=== PATIENT | male | born 1955 | race Hispanic/Latino ===

== ENCOUNTER 2019-04-12 05:49 | Inpatient (IN) | payer BC ==
[2019-04-10 13:24] VITALS: BP 135/63
[2019-04-10 13:33] LABS: APPEARANCE,URINE Clear (CLEAR); BILIRUBIN,URINE Negative (NEGATIVE); COLOR,URINE Yellow (YELLOW); GLUCOSE, URINE (UA) >=1000 mg/dL (NEGATIVE); KETONES,URINE Negative (NEGATIVE); LEUKOCYTE ESTERASE ,URINE Negative (NEGATIVE); NITRATE,URINE Negative (NEGATIVE); OCCULT BLOOD,URINE Negative (NEGATIVE); PH,URINE 5.5 (5.0-8.0); PROTEIN,URINE Negative (NEGATIVE)
[2019-04-10 13:40] LABS: CREATININE 1.4 mg/dL (0.5-1.5); POTASSIUM 4.3 mmol/L (3.5-5.1)
[2019-04-10 13:42] LABS: BASOPHILS % (AUTO) 0.5 % (0.0-5.0); EOSINOPHILS % (AUTO) 3.7 % (0.0-8.0); HEMATOCRIT 40.2 % (42-54); LYMPHOCYTES % (AUTO) 28.1 % (21.0-51.0); MEAN CORPUSCULAR HEMOGLOBIN 33.8 pg (27.0-33.0); MEAN CORPUSCULAR HGB CONC 35.4 g/dL (32.0-36.0); MEAN CORPUSCULAR VOLUME 95.4 fL (79-99); MONOCYTES % (AUTO) 9.1 % (3.0-13.0); NEUTROPHILS % (AUTO) 58.6 % (40.0-77.0); PLATELET COUNT (AUTO) 226 K/uL (130-400); RED BLOOD CELL COUNT(AUTO) 4.21 MIL/uL (4.50-6.20); RED CELL DISTRIBUTION WIDTH 13.1 % (11.0-15.5); WHITE BLOOD COUNT (AUTO) 6.5 K/uL (4.8-10.8)
[2019-04-10 13:51] LABS: BACTERIA,URINE Rare /HPF (None Seen); RBC,URINE 0-1 /HPF (0-1); SQUAMOUS EPITHELIAL CELL,UR Rare /HPF (0-2); WBC,URINE 0-1 /HPF (0-1)
[2019-04-10 14:17] LABS: INR 0.99 (0.85-1.15); PARTIAL THROMBOPLASTIN TIME 25.2 SEC (26.3-35.5); PROTHROMBIN TIME 10.4 SEC (9.6-11.6)
--- NOTE | 2019-04-11 13:24 | NUR ---
labs bun/ crea reported to Loli Briceño NP. (Dr. Collazo). no further orders given. ok to proceed with procedure
[2019-04-12] VITALS (11 sets, daily range): BP systolic 118–148; BP diastolic 51–70
[~2019-04-12] VITALS: Ht 165.1 cm; Wt 77.3 kg
[~2019-04-12 05:49] MED LIST: ASPI-1181 PO; ATOR20TA65 PO; ISOS20TA7 PO; LOSA1TAB37 PO; METF500T20 PO; METO-391 PO; RANO10003 PO; SODIUM CHLORIDE 0.9% 500ML 500 ML IV SCH
[2019-04-12] MEDS ORDERED: SODIUM CHLORIDE 0.9% 1000ML 1,000 ML IV ONE (06:22)
--- NOTE | 2019-04-12 06:25 | NUR ---
PRE-PROCEDURE RECEIVED FROM HOME VIA AMBULATING TO DAY 15 FOR SCHEDULED LHC. AWAKE IN NO ACUTE DISTRESS. DENIES CHEST PAIN AT PRESENT TIME. CONNECTED TO CONTINUOUS CARDIOPULMONARY MONITORING. SIDE RAILS UP X2, BED IN LOWEST POSITION, AND CALL LIGHT W/IN REACH.
[2019-04-12] MEDS ORDERED: HEPARIN SODIUM 1000UNIT/ML 10ML VIAL ONE (07:08)
[2019-04-12] MEDS ORDERED: IOHEXOL 350 MG/ML 100ML INFUS..BTL IV ONE (07:09)
[2019-04-12] MEDS ORDERED: LIDOCAINE HCL 2% 20ML ONE (07:09)
[2019-04-12] MEDS ORDERED: NITROGLYCERIN 5 MG/ML 10 ML VIAL IV ONE (07:09)
[2019-04-12] MEDS ORDERED: IOHEXOL-350 50ML VIAL IV ONE (07:09)
--- NOTE | 2019-04-12 07:15 | NUR ---
PROCEDURE TRANSFERRED TO VICE PRESIDENT RESEARCH VIA BED BY ANA LAURA OSUNA RN FOR SCHEDULED LHC. AWAKE IN NO ACUTE DISTRESS.
[2019-04-12] MEDS ORDERED: NITROGLYCERIN 4.1 GM SPRAY TL ONE (07:49)
[2019-04-12] MEDS ORDERED: METOPROLOL TARTRATE 1 MG/ML 5ML VIAL IV ONE (07:52)
[2019-04-12] MEDS ORDERED: HYDRALAZINE HCL 20 MG/ML VIAL ONE (07:55)
[2019-04-12] MEDS ORDERED: GLUCAGON 1MG KIT 1 MG ML IM PRN ×2 (08:15)
[2019-04-12] MEDS ORDERED: DEXTROSE 50%-WATER 50 ML DISP.SYRIN IV PRN (08:15)
--- NOTE | 2019-04-12 08:25 | NUR ---
POST-PROCEDURE RECEIVED BACK FROM CABIN CREW VIA BED BY ANA LAURA OSUNA RN S/P [facility]. AWAKE IN NO ACUTE DISTRESS. CONNECTED TO CONTINUOUS CARDIOPULMONARY MONITORING. DENIES PAIN. EDUCATED PT TO KEEP HEAD FLAT AND RIGHT LEG STRAIGHT. PT VERBALIZED UNDERSTANDING. SIDE RAILS UP X2, BED IN LOWEST POSITION, AND CALL LIGHT W/IN REACH. PENDING SURGICAL EVALUATION.
[2019-04-12] MEDS ORDERED: INSULIN HUMULIN R 100 UNIT/ML 3ML ONE (09:08)
--- NOTE | 2019-04-12 09:30 | NUR ---
CONSULT DR. MOJICA AND MJ CHAMBERS IN TO SEE PATIENT. PLAN FOR CABG DISCUSSED WITH PT AND . BOTH VERBALIZED UNDERSTANDING.
--- NOTE | 2019-04-12 10:10 | NUR ---
CONSULT NEYDA STEVE NP IN TO SEE PATIENT FOR NEW CONSULT.
[2019-04-12] MEDS ORDERED: CEFAZOLIN SODIUM 1 GM VIAL IVP PRN (10:15)
--- NOTE | 2019-04-12 11:00 | NUR ---
ACTIVITY HOB ELEVATED 25 DEGREES. CATH SITE W/O SIGNS OF BLEEDING ANGIOSEAL DRESSING CLEAN, DRY, AND INTACT;SITE SOFT, NON-TENDER.
--- NOTE | 2019-04-12 11:25 | NUR ---
REPORT REPORT GIVEN TO MJ ROSS USING SBAR. VERBALIZED UNDERSTANDING.
[2019-04-12] MEDS: INSULIN HUMULIN R 100 UNIT/ML 3ML SQ SCH ×3 (11:30→21:00)
--- NOTE | 2019-04-12 11:30 | NUR ---
TRANSFER TRANSFERRED TO ROOM 204 VIA BED. AWAKE IN NO ACUTE DISTRESS. CATH SITE CHECKED AT BEDSIDE NO SIGNS OF BLEEDING; ANGIOSEAL DRESSING CLEAN, DRY, AND INTACT;SITE SOFT, NON-TENDER.
[2019-04-12] MEDS ORDERED: ALBUMIN (HUMAN) 25% 50 ML IV ONE (14:21)
[2019-04-12] MEDS ORDERED: PHENYLEPHRINE HCL 10 MG/ML 1ML VIAL IV ONE (14:21)
[2019-04-12] MEDS ORDERED: HEPARIN SODIUM 1000UNIT/ML 10ML VIAL IV ONE (14:21)
[2019-04-12] MEDS ORDERED: AMINOCAPROIC ACID 250 MG/ML 20 ML VIAL IV ONE (14:21)
[2019-04-12] MEDS ORDERED: CALCIUM CHLORIDE 100 MG/ML 10 ML SYG IVP ONE (14:21)
[2019-04-12] MEDS ORDERED: MAGNESIUM SULFATE 1 GM/2 ML VIAL IM ONE (14:21)
[2019-04-12] MEDS ORDERED: MANNITOL 25% 50ML VIAL IV ONE (14:21)
[2019-04-12 14:44] LABS: HEMATOCRIT 41.5 % (42-54); MEAN CORPUSCULAR HEMOGLOBIN 32.7 pg (27.0-33.0); MEAN CORPUSCULAR HGB CONC 34.7 g/dL (32.0-36.0); MEAN CORPUSCULAR VOLUME 94.1 fL (79-99); PLATELET COUNT (AUTO) 271 K/uL (130-400); RED BLOOD CELL COUNT(AUTO) 4.41 MIL/uL (4.50-6.20); WHITE BLOOD COUNT (AUTO) 7.4 K/uL (4.8-10.8)
[2019-04-12 14:56] LABS: HEMOGLOBIN A1C 8.1 % (4.0-6.0); INR 1.03 (0.85-1.15); PARTIAL THROMBOPLASTIN TIME 24.5 SEC (26.3-35.5); PROTHROMBIN TIME 10.8 SEC (9.6-11.6)
[2019-04-12 14:58] LABS: CREATININE 1.6 mg/dL (0.5-1.5); POTASSIUM 3.7 mmol/L (3.5-5.1)
--- NOTE | 2019-04-12 15:13 | NUR ---
DC PLAN VISITED WITH PATIENT. PATIENT LIVES WITH SPOUSE. INDEPENDENT ABLE TO PERFORM ADL'S. PATIENT HAS NO SERVICES OR DME'S. FEELS SAFE TO RETURN HOME. ABNORMAL [facility] CONSULT FOR CABG. Addendum: 04/12/19 at 1516 by LETTY GILLILAND RN CM Amended: Links added.
[2019-04-12 15:14] LABS: B-TYPE NATRIURETIC PEPTIDE 30 pg/mL (0-100)
--- NOTE | 2019-04-12 18:30 | NUR ---
CONSENT Awake, alert, and oriented x3. Denies any chest pain at this time. Pre-op CABG teaching completed, education packets given. Consent signed at this time, questions answered. Spouse at bedside.
[2019-04-13] VITALS (47 sets, daily range): BP systolic 114–193; BP diastolic 49–186
[2019-04-13] MEDS: INSULIN HUMULIN R 100 UNIT/ML 3ML SQ SCH (05:41)
[2019-04-13 05:50] LABS: BASOPHILS % (AUTO) 0.4 % (0.0-5.0); EOSINOPHILS % (AUTO) 1.7 % (0.0-8.0); HEMATOCRIT 42.4 % (42-54); LYMPHOCYTES % (AUTO) 23.5 % (21.0-51.0); MEAN CORPUSCULAR HEMOGLOBIN 32.9 pg (27.0-33.0); MEAN CORPUSCULAR HGB CONC 34.7 g/dL (32.0-36.0); MEAN CORPUSCULAR VOLUME 94.6 fL (79-99); MONOCYTES % (AUTO) 6.6 % (3.0-13.0); NEUTROPHILS % (AUTO) 67.8 % (40.0-77.0); NUCLEATED RED BLOOD CELLS 0.1 % (0.0-0.19); PLATELET COUNT (AUTO) 289 K/uL (130-400); RED BLOOD CELL COUNT(AUTO) 4.48 MIL/uL (4.50-6.20); RED CELL DISTRIBUTION WIDTH 13.1 % (11.0-15.5); WHITE BLOOD COUNT (AUTO) 8.4 K/uL (4.8-10.8)
[2019-04-13 06:03] LABS: CREATININE 1.2 mg/dL (0.5-1.5); POTASSIUM 3.8 mmol/L (3.5-5.1)
[2019-04-13] MEDS ORDERED: NITROGLYCERIN 50 MG/D5% WATER 1 BOT ONE (07:14)
[2019-04-13] MEDS ORDERED: PAPAVERINE HCL 30 MG/ML 2ML VIAL ONE (07:52)
[2019-04-13] MEDS ORDERED: NOREPINEPHRINE BITARTRATE 8 MG/NS 250ML IV SCH ×2 (08:00)
[2019-04-13] MEDS ORDERED: AMINOCAPROIC ACID 15,000 MG in SODIUM CHLORIDE 0.9% 500ML 500 ML IV SCH (08:00)
[2019-04-13] MEDS ORDERED: EPINEPHRINE 8 MG in SODIUM CHLORIDE 0.9% 250 ML IV SCH (08:00)
[2019-04-13] MEDS ORDERED: METOPROLOL TARTRATE 25 MG TAB ONE (08:06)
[2019-04-13] MEDS ORDERED: AMINOCAPROIC ACID 250 MG/ML 20 ML VIAL IV ONE (08:19)
[2019-04-13] MEDS ORDERED: ESMOLOL HCL 10 MG/ML 10 ML VIAL ONE (08:19)
[2019-04-13] MEDS ORDERED: NOREPINEPHRINE BITARTRATE 1 MG/1 ML ML IV ONE (08:19)
[2019-04-13] MEDS ORDERED: PROTAMINE SULFATE 10 MG/ML 25ML VIAL IV ONE ×2 (08:19→10:44)
[2019-04-13] MEDS ORDERED: SODIUM BICARB 50MEQ 50ML VIAL ONE (08:19)
[2019-04-13] MEDS ORDERED: HEPARIN SODIUM 1000UNIT/ML 10ML VIAL ONE (08:19)
[2019-04-13] MEDS ORDERED: LIDOCAINE PF 2% 5ML ABBOJECT ONE (08:19)
[2019-04-13] MEDS ORDERED: EPINEPHRINE 1 MG/ML AMPULE ONE (08:19)
[2019-04-13] MEDS ORDERED: ETOMIDATE 2 MG/ML 10 ML VIAL ONE (08:20)
[2019-04-13] MEDS ORDERED: MIDAZOLAM HCL 1 MG/ML 2ML VIAL ONE (08:20)
[2019-04-13] MEDS ORDERED: ROCURONIUM 10MG/1ML SYR 10 MG/ML ML ONE ×2 (08:20→10:49)
[2019-04-13] MEDS ORDERED: FENTANYL CITRATE PF 50 MCG/1 ML 5ML AMP IV ONE ×2 (08:21→11:17)
[2019-04-13] MEDS ORDERED: METOPROLOL TARTRATE 1 MG/ML 5ML VIAL IV ONE (08:33)
[2019-04-13] MEDS ORDERED: DELNIDO FORMULA 0 BAG IV ONE (08:37)
[2019-04-13] MEDS ORDERED: GLYCOPYRROLATE 1 MG/5 ML SYRINGE ONE (08:47)
[2019-04-13] MEDS ORDERED: ENOXAPARIN SODIUM 30 MG/0.3 ML SQ SCH (09:00)
[2019-04-13] MEDS ORDERED: FAMOTIDINE 20MG TAB 20 MG TAB PO SCH (09:00)
[2019-04-13 09:36] LABS: ABG HCO3 19.7 mmol/L (21.0-28.0); ABG OXYGEN SATURATION 99.5 % (95.0-99.0); ABG PCO2 29 mmHg (35-48)
[2019-04-13 10:09] LABS: ABG HCO3 23.7 mmol/L (21.0-28.0); ABG OXYGEN SATURATION 98.6 % (95.0-99.0); ABG PCO2 40 mmHg (35-48)
[2019-04-13] MEDS ORDERED: AMIODARONE HCL 50 MG/ML 3 ML VIAL ONE (10:27)
[2019-04-13 10:36] LABS: ABG BASE EXCESS 0.3 mmol/L (-2.0-3.0); ABG HCO3 24.6 mmol/L (21.0-28.0); ABG OXYGEN SATURATION 98.3 % (95.0-99.0); ABG PCO2 38 mmHg (35-48)
[2019-04-13 11:05] LABS: ABG BASE EXCESS -5.6 mmol/L (-2.0-3.0); ABG HCO3 18.7 mmol/L (21.0-28.0); ABG OXYGEN SATURATION 98.9 % (95.0-99.0); ABG PCO2 33 mmHg (35-48)
[2019-04-13] MEDS ORDERED: SODIUM CHLORIDE 0.9% 500ML 500 ML IV SCH (11:47)
--- NOTE | 2019-04-13 11:55 | NUR ---
ARRIVAL TO CVR Received from OR. Dr. Sanchez at bedside. Orally intubated with 7.5 ETT at 22cm at lips, tolerating vent settings as prescribed, off sedation. ETT connected to endotracheal cardiac output monitor. Central Venous catheter to right IJ noted infusing Amicar at 50cc, Levophed at 1mcg/min, and Epinephrine drip at 0.05mcg/kg/min. Sternal dressing dry and intact, pacing wires attached to chest, epicardial pacemaker off. Arterial line to left radial patent, leveled and zeroed with adequate waveform. Chest tubes x3 to anterior mediastinal, no air leak noted, serosanguineous output. Mann catheter to gravity. William-wrap to left donor leg. Pulses palpable. Sinus mechanism in 90s, ASBP 150s.
[2019-04-13] MEDS ORDERED: PROPOFOL 1000 MG/100 ML 100 ML IV PRN (12:00)
[2019-04-13] MEDS ORDERED: INSULIN REGULAR, HUMAN 3ML 100 UNIT in SODIUM CHLORIDE 0.9% 99 ML IV SCH ×2 (12:00)
[2019-04-13] MEDS ORDERED: MAGNESIUM 2GM PREMIX 50ML 50 ML IV PRN (12:00)
[2019-04-13] MEDS ORDERED: SODIUM CHLORIDE 0.9% 1000ML 1,000 ML IV SCH (12:00)
[2019-04-13] MEDS ORDERED: EPINEPHRINE 8 MG in DEXTROSE 5%-WATER 250 ML IV PRN (12:00)
[2019-04-13] MEDS ORDERED: SODIUM CHLORIDE 0.9% 10 ML VIAL IVP PRN (12:00)
[2019-04-13] MEDS ORDERED: NOREPINEPHRINE 4MG/NS 250ML 250 ML IV PRN (12:00)
[2019-04-13] MEDS ORDERED: ACETAMINOPHEN 650 MG SUPPOSITORY RC PRN (12:00)
[2019-04-13] MEDS ORDERED: SODIUM CHLORIDE 0.9% 250 ML IV PRN (12:00)
[2019-04-13] MEDS ORDERED: MORPHINE SULFATE 2 MG/ML 1ML SYG IV PRN (12:00)
[2019-04-13] MEDS ORDERED: ACETAMINOPHEN 325 MG TAB PO PRN ×2 (12:00)
[2019-04-13] MEDS ORDERED: ONDANSETRON HCL 4 MG/2 ML VIAL IV PRN (12:00)
[2019-04-13] MEDS ORDERED: MORPHINE SULFATE 4 MG/1ML SYG IV PRN (12:00)
[2019-04-13] MEDS ORDERED: NITROGLYCERIN 50 MG/D5% WATER 250 BOT IV SCH (12:00)
[2019-04-13] MEDS ORDERED: GLUCAGON 1MG KIT 1 MG ML IM PRN (12:00)
[2019-04-13] MEDS ORDERED: DEXTROSE 50%-WATER 50 ML DISP.SYRIN IV PRN (12:00)
[2019-04-13] MEDS ORDERED: POTASSIUM PHOS 15 mMOL+NS250ML 250 ML IV PRN (12:00)
[2019-04-13] MEDS ORDERED: ALBUMIN (HUMAN) 5% 250 ML IV PRN (12:00)
[2019-04-13] MEDS ORDERED: TRAMADOL HCL 50 MG TABLET PO PRN (12:00)
[2019-04-13] MEDS ORDERED: AMINOCAPROIC ACID 15,000 MG in SODIUM CHLORIDE 0.9% 250 ML IV SCH (12:00)
[2019-04-13 12:23] LABS: HEMATOCRIT 41.1 % (42-54); MEAN CORPUSCULAR HEMOGLOBIN 33.1 pg (27.0-33.0); MEAN CORPUSCULAR HGB CONC 34.3 g/dL (32.0-36.0); MEAN CORPUSCULAR VOLUME 96.5 fL (79-99); NUCLEATED RED BLOOD CELLS 0.1 % (0.0-0.19); PLATELET COUNT (AUTO) 207 K/uL (130-400); RED BLOOD CELL COUNT(AUTO) 4.25 MIL/uL (4.50-6.20); RED CELL DISTRIBUTION WIDTH 13.2 % (11.0-15.5); WHITE BLOOD COUNT (AUTO) 22.4 K/uL (4.8-10.8)
[2019-04-13 12:32] LABS: ABG BASE EXCESS -4.9 mmol/L (-2.0-3.0); ABG OXYGEN SATURATION 97.9 % (95.0-99.0); ABG PCO2 33 mmHg (35-48)
[2019-04-13 12:32] LABS: INR 1.19 (0.85-1.15); PARTIAL THROMBOPLASTIN TIME 24.3 SEC (26.3-35.5); PROTHROMBIN TIME 12.4 SEC (9.6-11.6)
[2019-04-13 12:37] LABS: CREATININE 1.4 mg/dL (0.5-1.5); MAGNESIUM 2.7 mg/dL (1.80-2.40); PHOSPHORUS 4.8 mg/dL (2.5-4.9); POTASSIUM 3.8 mmol/L (3.5-5.1)
[2019-04-13] MEDS: SODIUM BICARB 50MEQ 50ML VIAL IV PRN ×2 (12:48→16:52)
--- NOTE | 2019-04-13 13:30 | NUR ---
FAMILY Pt's and daughter at bedside, plan of care discussed, verbalized understanding.
--- NOTE | 2019-04-13 14:05 | NUR ---
MD VISIT Dr. Lema in to see pt, update given. No further orders received.
[2019-04-13 14:22] LABS: ABG BASE EXCESS -0.1 mmol/L (-2.0-3.0); ABG HCO3 21.9 mmol/L (21.0-28.0); ABG OXYGEN SATURATION 98.8 % (95.0-99.0); ABG PCO2 29 mmHg (35-48)
[2019-04-13] MEDS: TRAMADOL HCL 50 MG TABLET PO PRN ×2 (15:00→21:02)
[2019-04-13 15:13] LABS: ABG BASE EXCESS -2.2 mmol/L (-2.0-3.0); ABG HCO3 20.5 mmol/L (21.0-28.0); ABG OXYGEN SATURATION 98.8 % (95.0-99.0); ABG PCO2 30 mmHg (35-48)
--- NOTE | 2019-04-13 15:25 | NUR ---
EXTUBATION Fully awake, follows commands, able to sustain head-lift, strong bilateral hand histology manager. Arterial blood gases done. Negative inspiratory force of [id number], vital capacity 1750cc. Extubated and placed on Aerosol mask at 40%, tolerating well. Instructed not to speak for next 2 hours, nods understanding.
[2019-04-13] MEDS: CEFAZOLIN SODIUM 1 GM VIAL IV SCH (16:26)
--- NOTE | 2019-04-13 16:39 | NUR ---
REPORT Report given to MJ Francisco.
[2019-04-13 16:42] LABS: ABG BASE EXCESS -3.1 mmol/L (-2.0-3.0); ABG HCO3 22.1 mmol/L (21.0-28.0); ABG OXYGEN SATURATION 97.9 % (95.0-99.0); ABG PCO2 40 mmHg (35-48)
[2019-04-13] MEDS: POTASSIUM CHLORIDE 20MEQ/100ML 100 ML IV PRN ×4 (17:33→23:46)
[2019-04-13] MEDS: CALCIUM GLUCONATE 1 GM in SODIUM CHLORIDE 0.9% 50 ML IV PRN (17:33)
[2019-04-13 20:24] LABS: MAGNESIUM 2.3 mg/dL (1.80-2.40); POTASSIUM 3.3 mmol/L (3.5-5.1)
[2019-04-13] MEDS: ATORVASTATIN CALCIUM 40 MG TABLET PO SCH (20:52)
[2019-04-13] MEDS: FAMOTIDINE/PF 20 MG/2 ML VIAL IV SCH (20:53)
[2019-04-14] VITALS (50 sets, daily range): BP systolic -11–208; BP diastolic -11–83
[2019-04-14] MEDS: CALCIUM GLUCONATE 1 GM in SODIUM CHLORIDE 0.9% 50 ML IV PRN ×2 (01:08→03:55)
[2019-04-14] MEDS: CEFAZOLIN SODIUM 1 GM VIAL IV SCH ×2 (01:08→07:46)
[2019-04-14] MEDS: TRAMADOL HCL 50 MG TABLET PO PRN (03:29)
[2019-04-14 03:50] LABS: BASOPHILS % (AUTO) 0.1 % (0.0-5.0); HEMATOCRIT 35.7 % (42-54); LYMPHOCYTES % (AUTO) 9.7 % (21.0-51.0); MEAN CORPUSCULAR HEMOGLOBIN 32.6 pg (27.0-33.0); MEAN CORPUSCULAR HGB CONC 34.4 g/dL (32.0-36.0); MEAN CORPUSCULAR VOLUME 94.8 fL (79-99); MONOCYTES % (AUTO) 9.1 % (3.0-13.0); NEUTROPHILS % (AUTO) 81.1 % (40.0-77.0); PLATELET COUNT (AUTO) 188 K/uL (130-400); RED BLOOD CELL COUNT(AUTO) 3.76 MIL/uL (4.50-6.20); WHITE BLOOD COUNT (AUTO) 14.6 K/uL (4.8-10.8)
[2019-04-14] MEDS ORDERED: CALCIUM GLUCONATE 1 GM/10 ML VIAL IV ONE (03:54)
[2019-04-14 04:04] LABS: MAGNESIUM 1.9 mg/dL (1.80-2.40); PHOSPHORUS 4.8 mg/dL (2.5-4.9); POTASSIUM 3.7 mmol/L (3.5-5.1)
[2019-04-14 04:14] LABS: INR 1.09 (0.85-1.15); PROTHROMBIN TIME 11.4 SEC (9.6-11.6)
[2019-04-14] MEDS: POTASSIUM CHLORIDE 20MEQ/100ML 100 ML IV PRN ×2 (04:20→06:05)
[2019-04-14 04:23] LABS: ABG BASE EXCESS 0.9 mmol/L (-2.0-3.0); ABG HCO3 25.4 mmol/L (21.0-28.0); ABG OXYGEN SATURATION 96.2 % (95.0-99.0); ABG PCO2 40 mmHg (35-48)
[2019-04-14] MEDS: FAMOTIDINE/PF 20 MG/2 ML VIAL IV SCH ×2 (07:46→21:47)
[2019-04-14] MEDS ORDERED: ASPIRIN 325MG EC TAB 325 MG TABLET.DR PO SCH (09:00)
--- NOTE | 2019-04-14 09:00 | NUR ---
AND DAUGHTER AT BEDSIDE AND HAPPY TO SEE PT'S PROGRESS AND SITTING UP IN A CHAIR. PT IS JOKING WITH FAMILY MEMBERS AND IN GOOD SPIRITS.
--- NOTE | 2019-04-14 09:50 | NUR ---
PHYSICAL THERAPIST GIORGIO HERE AND ASSESSED PT AND PT WAS ABLE TO TOLERATE ACTIVITY. FAMILY MEMBERS AT BEDSIDE.
--- NOTE | 2019-04-14 10:10 | NUR ---
DR. GWENDOLYN COYNE HERE AND ASSESSED PT AND SPOKE WITH AND DAUGHTER. ORDERS NOTED.
[2019-04-14] MEDS ORDERED: METOPROLOL TARTRATE 25 MG TAB ONE (10:23)
[2019-04-14] MEDS: LOSARTAN 50 MG TABLET PO SCH (10:30)
[2019-04-14] MEDS: METOPROLOL TARTRATE 25 MG TAB PO SCH ×4 (10:30→21:47)
--- NOTE | 2019-04-14 11:30 | NUR ---
PT HAS BEEN ASSESSED BY DR. MOJICA AND DR. COLLINS ORDERS NOTED.
[2019-04-14] MEDS ORDERED: POTASSIUM CHLORIDE 20 MEQ ERTAB PO SCH (11:45)
[2019-04-14] MEDS: FUROSEMIDE 10 MG/ML 2ML VIAL IV SCH ×2 (12:53→22:46)
--- NOTE | 2019-04-14 18:00 | NUR ---
TOTAL OUTPUT TO CHEST TUBES LABELED M WAS AT THE 280 LEVEL AND THE CHEST TUBE LABELED A TOTAL WAS 480 LEVEL. TOTAL FOR 7A-7P SHIFT WAS 180 FOR CHEST TUBES LABELED A, TOTAL FOR CHEST TUBE LABELED M WAS 90 FOR 7A-7P SHIFT. TOTAL URINE OUTPUT WAS 600CC FOR 7A-7P SHIFT. PT HAS BEEN RESTING COMFORTABLY AND HAS NOT REQUIRED ANY PAIN MED, DENIES ANY PAIN JUST BEING SOAR. FAMILY MEMBERS AT BEDSIDE.
--- NOTE | 2019-04-14 18:23 | NUR ---
PT TO BE MOVED TO ROOM 216 AFTER THE ROOM IS CLEANED FAMILY MEMBERS ADVISED.
[2019-04-14] MEDS: ATORVASTATIN CALCIUM 40 MG TABLET PO SCH (21:47)
[2019-04-14] MEDS ORDERED: INSULIN HUMULIN R 100 UNIT/ML 3ML ONE ×2 (22:58→23:04)
[2019-04-15] VITALS (11 sets, daily range): BP systolic 128–170; BP diastolic 63–75
[2019-04-15 05:33] LABS: HEMATOCRIT 35.3 % (42-54); MEAN CORPUSCULAR HEMOGLOBIN 33.1 pg (27.0-33.0); MEAN CORPUSCULAR HGB CONC 34.6 g/dL (32.0-36.0); MEAN CORPUSCULAR VOLUME 95.7 fL (79-99); PLATELET COUNT (AUTO) 175 K/uL (130-400); RED BLOOD CELL COUNT(AUTO) 3.69 MIL/uL (4.50-6.20); RED CELL DISTRIBUTION WIDTH 13.3 % (11.0-15.5); WHITE BLOOD COUNT (AUTO) 15.6 K/uL (4.8-10.8)
[2019-04-15 05:48] LABS: CREATININE 0.9 mg/dL (0.5-1.5); POTASSIUM 3.6 mmol/L (3.5-5.1)
[2019-04-15] MEDS: POTASSIUM CHLORIDE 20MEQ/100ML 100 ML IV PRN ×2 (05:58→13:28)
[2019-04-15] MEDS: FUROSEMIDE 20 MG TABLET PO SCH ×2 (09:20→16:22)
[2019-04-15] MEDS: POTASSIUM CHLORIDE 20 MEQ ERTAB PO SCH (09:21)
[2019-04-15] MEDS: LOSARTAN 50 MG TABLET PO SCH (09:21)
[2019-04-15] MEDS: METOPROLOL TARTRATE 50 MG TAB PO SCH ×2 (09:22→20:50)
[2019-04-15] MEDS: FAMOTIDINE/PF 20 MG/2 ML VIAL IV SCH ×2 (09:22→20:50)
[2019-04-15] MEDS: TRAMADOL HCL 50 MG TABLET PO PRN (09:40)
[2019-04-15] MEDS: INSULIN HUMULIN R 100 UNIT/ML 3ML SQ SCH ×3 (11:30→20:52)
--- NOTE | 2019-04-15 11:30 | NUR ---
D/C CHEST TUBES, D/C F/C EXPLAINED PROCEDURE TO PATIENT AND PRACTICED BREATHING TECHNIQUE (2 DEEP BREATHS IN/OUT, THEN HOLD IN THIRD BREATH). FIRST REMOVED THE MEDIASTINAL TUBE WITHOUT ANY DIFFICULTY, SUTURE TIED AND CLIPPED. THEN UTILIZING SAME BREATHING TECHNIQUE, THE BIFURCATED BILATERAL PLEURAL TUBES WERE REMOVED WITHOUT DIFFICULTY. SUTURES TIED, CLIPPED AND CLEANSED WITH BETADINE AND COVERED WITH 4X4 AND SECURED WITH MEDIPORE TAPE F/C REMOVAL EXPLAINED TO PATIENT. 10ML REMOVED FROM BALLOON, PATIENT TOOK DEEP BREATH AND F/C REMOVED WITH DIFFICULTY. PROVIDED WITH URINAL AND INSTRUCTED TO LET US KNOW WHEN HE URINATES
--- NOTE | 2019-04-15 20:00 | NUR ---
ASSESSMENT PT RESTING IN BED, FAMILY AT BEDSIDE. CALLBELL REVIEWED AND WITHIN REACH, MONITOR PARAMETERS REVIEWED AND ADJUSTED. WHITE BOARD UP-DATED. ASSESSMENT COMPLETED, SEE FLOW SHEET.
[2019-04-15] MEDS: ATORVASTATIN CALCIUM 40 MG TABLET PO SCH (20:49)
--- NOTE | 2019-04-15 23:45 | NUR ---
ASSESSMENT PT RESTING IN BED, FAMILY AT BEDSIDE. SEE E.LALA FOR ANALGESICS GIVEN. CALLBELL REVIEWED AND WITHIN REACH, MONITOR PARAMETERS REVIEWED AND ADJUSTED. WHITE BOARD UP-DATED. ASSESSMENT COMPLETED, SEE FLOW SHEET.
[2019-04-16 03:42] VITALS: BP 152/70
[2019-04-16 03:54] LABS: HEMATOCRIT 35.1 % (42-54); MEAN CORPUSCULAR HEMOGLOBIN 33.1 pg (27.0-33.0); MEAN CORPUSCULAR HGB CONC 34.7 g/dL (32.0-36.0); MEAN CORPUSCULAR VOLUME 95.3 fL (79-99); PLATELET COUNT (AUTO) 198 K/uL (130-400); RED BLOOD CELL COUNT(AUTO) 3.68 MIL/uL (4.50-6.20); WHITE BLOOD COUNT (AUTO) 10.7 K/uL (4.8-10.8)
[2019-04-16 04:00] LABS: CREATININE 0.9 mg/dL (0.5-1.5); POTASSIUM 3.7 mmol/L (3.5-5.1)
[2019-04-16] MEDS: INSULIN HUMULIN R 100 UNIT/ML 3ML SQ SCH ×4 (06:27→21:09)
--- NOTE | 2019-04-16 06:44 | NUR ---
MD VISIT DR CHASE INTO SEE PT
[2019-04-16 07:00] VITALS: BP 138/77
[2019-04-16] MEDS: LOSARTAN 50 MG TABLET PO SCH (08:22)
[2019-04-16] MEDS: ASPIRIN 81MG TAB.CHEW PO SCH (08:22)
[2019-04-16] MEDS: POTASSIUM CHLORIDE 20 MEQ ERTAB PO SCH (08:23)
[2019-04-16] MEDS: METOPROLOL TARTRATE 50 MG TAB PO SCH ×2 (08:24→21:10)
[2019-04-16] MEDS: FUROSEMIDE 20 MG TABLET PO SCH ×2 (08:25→18:37)
[2019-04-16] MEDS: ENOXAPARIN SODIUM 30 MG/0.3 ML SQ SCH (08:26)
[2019-04-16] MEDS ORDERED: FAMOTIDINE 20MG TAB 20 MG TAB ONE (08:36)
[2019-04-16 09:00] VITALS: BP 125/67
[2019-04-16] MEDS: FAMOTIDINE 20MG TAB 20 MG TAB PO SCH ×2 (09:00→21:10)
[2019-04-16 10:00] VITALS: BP 131/64
[2019-04-16 16:18] VITALS: BP 142/89
[2019-04-16] MEDS ORDERED: POTASSIUM CHLORIDE 20 MEQ ERTAB PO PRN (19:00)
[2019-04-16] MEDS ORDERED: POTASSIUM CHLORIDE 10% ELIXIR 20 MEQ/15 ML UDCUP PO PRN (19:00)
[2019-04-16 19:30] VITALS: BP 132/71
--- NOTE | 2019-04-16 20:00 | NUR ---
ASSESSMENT PT RESTING IN BED, FAMILY AT BEDSIDE. CALLBELL REVIEWED AND WITHIN REACH, BEDSIDE MONITOR REVIEWED AND PARAMETERS ADJUSTED. WHITE BOARD UP-DATED. ASSESSMENT COMPLETED, SEE FLOW SHEET.
[2019-04-16] MEDS: ATORVASTATIN CALCIUM 40 MG TABLET PO SCH (21:10)
[2019-04-17 00:16] VITALS: BP 133/70
--- NOTE | 2019-04-17 03:30 | NUR ---
ASSESSMENT PT RESTING IN BED, FAMILY AT BEDSIDE. CALLBELL WITHIN REACH, BEDSIDE MONITOR REVIEWED AND PARAMETERS ADJUSTED. WHITE BOARD UP-DATED. ASSESSMENT COMPLETED, SEE FLOW SHEET.
[2019-04-17 03:48] VITALS: BP 140/68
[2019-04-17 03:50] LABS: HEMATOCRIT 35.4 % (42-54); MEAN CORPUSCULAR HEMOGLOBIN 33.5 pg (27.0-33.0); MEAN CORPUSCULAR HGB CONC 35.1 g/dL (32.0-36.0); MEAN CORPUSCULAR VOLUME 95.3 fL (79-99); PLATELET COUNT (AUTO) 221 K/uL (130-400); RED BLOOD CELL COUNT(AUTO) 3.71 MIL/uL (4.50-6.20); RED CELL DISTRIBUTION WIDTH 13.2 % (11.0-15.5); WHITE BLOOD COUNT (AUTO) 9.5 K/uL (4.8-10.8)
[2019-04-17 04:15] LABS: CREATININE 0.9 mg/dL (0.5-1.5); MAGNESIUM 2.2 mg/dL (1.80-2.40); POTASSIUM 3.8 mmol/L (3.5-5.1)
[2019-04-17] MEDS: INSULIN HUMULIN R 100 UNIT/ML 3ML SQ SCH ×3 (05:57→16:12)
--- NOTE | 2019-04-17 06:13 | NUR ---
TRANSFER TO ROOM 223 PT TRANSFERRED TO ROOM TO 223. AT BEDSIDE. PERSONAL BELONGINGS PACKED AND WITH .
[2019-04-17 06:19] VITALS: BP 146/67
[2019-04-17] MEDS ORDERED: FURO20TA6 PO (07:22)
[2019-04-17] MEDS ORDERED: METO50 PO (07:22)
[2019-04-17] MEDS ORDERED: LOSA50TA2 PO (07:22)
[2019-04-17] MEDS ORDERED: ATOR40TA69 PO (07:22)
--- NOTE | 2019-04-17 07:26 | NUR ---
DR. Kat CHASE IN ROOM SPEAKING WITH PT. RE:PLAN OF CARE. QUESTIONS ANSWERED BY DR. CHASE.
[2019-04-17 07:36] VITALS: BP 133/67
--- NOTE | 2019-04-17 08:01 | NUR ---
KHADRA LEY, IN ROOM SPEAKING WITH PT. RE:PLAN OF CARE.
[2019-04-17] MEDS: METOPROLOL TARTRATE 50 MG TAB PO SCH (08:32)
[2019-04-17] MEDS: FAMOTIDINE 20MG TAB 20 MG TAB PO SCH (08:32)
[2019-04-17] MEDS: FUROSEMIDE 20 MG TABLET PO SCH ×2 (08:32→17:06)
[2019-04-17] MEDS: POTASSIUM CHLORIDE 20 MEQ ERTAB PO SCH (08:32)
[2019-04-17] MEDS: LOSARTAN 50 MG TABLET PO SCH (08:33)
[2019-04-17] MEDS: ASPIRIN 81MG TAB.CHEW PO SCH (08:33)
[2019-04-17] MEDS: ENOXAPARIN SODIUM 30 MG/0.3 ML SQ SCH (08:36)
[2019-04-17 12:03] VITALS: BP 130/65
--- NOTE | 2019-04-17 14:52 | NUR ---
RD NOTIFICATION Diet: 75gmCCD/ Mechanical soft/chopped. PO intake 100% and has good appetite as per pt and . LBM: 04/16, diarrhea. Pt tolerating food textures well. Pt recently diagnosed with DM and unsure what foods recommended/ should be avoided. RD provided DM and Heart Healthy diet and nutrition education. Education materials provided. asked many questions, RD answered and the couple verbalized understanding. Recommendations and Interventions: Continue current diet, add Heart Healthy to diet order RD provided diet and nutrition education, materials provided RD will follow up as needed, thank you. Addendum: 04/17/19 at [address] Amended: Links added.
--- NOTE | 2019-04-17 14:57 | NUR ---
DIET EDUCATION Pt recently diagnosed with DM and unsure what foods recommended/ should be avoided. FABIOLA provided DM and Heart Healthy diet and nutrition education. Education materials provided. asked many questions, RD answered and the couple verbalized understanding. Addendum: 04/17/19 at [address] Amended: Links added.
[2019-04-17 15:23] VITALS: BP 136/67
--- NOTE | 2019-04-17 18:45 | NUR ---
HL REMOVED, CATHETER INTACT. DISCHARGE INSTRUCTIONS GIVEN TO PT. AND SPOUSE AT BEDSIDE, VERBALIZED MUTUAL UNDERSTANDING.
== END 2019-04-17 19:00 | disposition home or self-care (01) | DRG 234 ==
LOC: DAH 05:49 → DAHIP 05:50 → 2AH 12:12 → 2CV 04-13 08:40 → 2CH 04-14 18:59 → 2DH 04-17 06:06
PROVIDERS: ADMIT Internal Medicine Pulmonary Disease; ATTEND Internal Medicine Pulmonary Disease
PROC: 4A023N7 Measurement of Cardiac Sampling and Pressure, Left Heart, Percutaneous Approach (ICD-10-PCS; 2019-04-12)
PROC: B2111ZZ Fluoroscopy of Multiple Coronary Arteries using Low Osmolar Contrast (ICD-10-PCS; 2019-04-12)
PROC: B2151ZZ Fluoroscopy of Left Heart using Low Osmolar Contrast (ICD-10-PCS; 2019-04-12)
PROC: B41F1ZZ Fluoroscopy of Right Lower Extremity Arteries using Low Osmolar Contrast (ICD-10-PCS; 2019-04-12)
PROC: 02100Z9 Bypass Coronary Artery, One Artery from Left Internal Mammary, Open Approach (ICD-10-PCS; 2019-04-13)
PROC: 06BQ4ZZ Excision of Left Saphenous Vein, Percutaneous Endoscopic Approach (ICD-10-PCS; 2019-04-13)
PROC: 021109W Bypass Coronary Artery, Two Arteries from Aorta with Autologous Venous Tissue, Open Approach (ICD-10-PCS; principal; 2019-04-13 08:13)
DX: I25.110 Atherosclerotic heart disease of native coronary artery with unstable angina pectoris (principal); E11.9 Type 2 diabetes mellitus without complications; I10 Essential (primary) hypertension; R00.0 Tachycardia, unspecified; E78.00 Pure hypercholesterolemia, unspecified; E78.5 Hyperlipidemia, unspecified; R94.39 Abnormal result of other cardiovascular function study; Z95.1 Presence of aortocoronary bypass graft; Z79.899 Other long term (current) drug therapy; Z79.82 Long term (current) use of aspirin
CPT/HCPCS: 36415; 71045; 80048; 80061; 81001; 82330; 82435; 82803; 82947; 82948; 83036; 83605; 83735; 83880; 84100; 84132; 84295; 85018; 85025; 85027; 85347; 85610; 85730; 86850; 86900; 86901; 86922; 93005; 93306; 93458; 93880; 94002; 94010; 94150; 97039; A4606; A7048; C1729; C1757; C1760; C1894; G0378; J0171; J0282; J0360; J0610; J0690; J1644; J1650; J1815; J1940; J2001; J2150; J2250; J2370; J2440; J2720; J3010; J3475; J3480; J3490; J7030; J7040; J7120; P9047; Q9967